=== PATIENT | male | born 1950 | race Caucasian/White ===

== ENCOUNTER 2016-10-04 09:15 | Outpatient (CLI) | payer MEDICARE, BC ==
[~2016-10-04] VITALS: Ht 190.5 cm; Wt 80.3 kg
--- NOTE | ~2016-10-04 | OR ---
PATIENT'S NAME: JESUS PETERS [facility] AGE: 65 Y [address] ROOM: [address] [address] LOCATION: GPCU ADMIT DATE: 10/04/2016 OR/Procedure Report DISCHARGE DATE: FAMILY PHYSICIAN: ASTON NOVA MD ATTENDING PHYSICIAN: SUKHI ORTEGA SURGEON: Sukhi Ortega MD BULLION WEIGHER: DATE OF PROCEDURE: 10/04/2016 PREOPERATIVE DIAGNOSIS: Poorly functioning left arm AV fistula. POSTOPERATIVE DIAGNOSIS: Poorly functioning left arm AV fistula. PROCEDURE: Diagnostic fistulogram. SNACK BAR ATTENDANT: Ryne Thomas MD. ANESTHESIA: MAC local. ESTIMATED BLOOD LOSS: 5 mL. OPERATIVE FINDINGS: No abnormality seen in the fistula. DESCRIPTION OF PROCEDURE: The patient was brought to the laborer carpentry dock, placed supine on laborer carpentry dock table, prepped and draped in a sterile manner. Preoperative time-out was performed. The patient received preoperative antibiotics. We gained access using ultrasound guidance to the fistula in the left arm using a micropuncture needle, followed by micropuncture wire, followed by micropuncture sheath. We then performed a series of fistulogram through the micropuncture sheath, which showed no outflow tract abnormality and no arterial stenosis abnormality. I am not sure what problem the dialysis center is actually having, but I did not see any abnormality that should cause any issue with this fistula. I removed the sheath and held pressure for 10 minutes. The patient tolerated the procedure well and transferred to recovery room and then home later that day. SUKHI ORTEGA MD FKM/modl /[id number] d: 10/04/162243 t: 10/07/16 1519, OPERATIVE SUMMARY
[~2016-10-04 09:15] MED LIST: CARDIZEM CD)(T180 MG PO; CORDARONE,PACE200 MG PO; DELTASONE5 MG PO; ELIQUIS2.5 MG PO; VITAMIN D250000 UNIT PO
== END 2016-10-04 12:52 | disposition disaster alternative care site (69) ==
LOC: GPCU 09:15 → GCAT 09:15
PROC: 03WY37Z Revision of Autologous Tissue Substitute in Upper Artery, Percutaneous Approach (ICD-10-PCS; principal; 2016-10-04)
DX: T82.898A Other specified complication of vascular prosthetic devices, implants and grafts, initial encounter (principal)
CPT/HCPCS: J0690; J1644; J2001; J7030

== ENCOUNTER → 2017-03-01 | Outpatient (CLI) | payer MEDICARE, BC ==
[2017-03-01 10:47] LABS: ANION GAP 12.2 (10.0-19.0); CALCIUM 8.4 mg/dL (8.5-10.5); POTASSIUM 5.2 mMol/L (3.7-5.1)
== END | disposition disaster alternative care site (69) ==
LOC: GLAB 10:25
PROVIDERS: Internal Medicine Interventional Cardiology
DX: I25.10 Atherosclerotic heart disease of native coronary artery without angina pectoris (principal)